=== PATIENT | female | born 1995 | race African-American/Black ===

== ENCOUNTER 2020-10-13 07:14 | Emergency (ER) | payer OTHER ==
[~2020-10-13] VITALS: Ht 177.8 cm; Wt 142.9 kg
[2020-10-13 08:02] VITALS: BP 124/70
[2020-10-13] MEDS ORDERED: cefTRIAXone SOD 1,000 MG VL IM ONE (08:15)
[2020-10-13] MEDS ORDERED: methylPREDNISolone SOD SUCC 125 MG/2 ML VL IM ONE (08:15)
== END 2020-10-13 08:35 | disposition home or self-care (01) ==
LOC: ER 07:14
DX: J02.9 Acute pharyngitis, unspecified (principal); Z90.89 Acquired absence of other organs
CPT/HCPCS: 96372; 99284; J0696; J2930